=== PATIENT | male | born 1945 | race Caucasian/White ===

== ENCOUNTER 2020-02-17 08:51 | Outpatient (RCR) | payer MEDICARE, SELFPAY | END 2020-04-22 08:06 | disposition home or self-care (01) | LOC: HO.WCC 08:51 | PROVIDERS: PCP Internal Medicine; Visit Provider Physician Assistant Surgical | DX: Z09 Encounter for follow-up examination after completed treatment for conditions other than malignant neoplasm (principal); I87.302 Chronic venous hypertension (idiopathic) without complications of left lower extremity; E11.51 Type 2 diabetes mellitus with diabetic peripheral angiopathy without gangrene; I73.89 Other specified peripheral vascular diseases; Q81.8 Other epidermolysis bullosa; I82.592 Chronic embolism and thrombosis of other specified deep vein of left lower extremity; L29.9 Pruritus, unspecified; Z79.01 Long term (current) use of anticoagulants | CPT/HCPCS: 11042; 15271; 29581; 97597; 99212; Q4101 ==

== ENCOUNTER 2020-10-12 07:59 | Outpatient (RCR) | payer MEDICARE, SELFPAY | END 2020-12-16 15:02 | disposition home or self-care (01) | LOC: HO.WCC 07:59 | PROVIDERS: Visit Provider Physician Assistant | DX: E11.621 Type 2 diabetes mellitus with foot ulcer (principal); L97.512 Non-pressure chronic ulcer of other part of right foot with fat layer exposed; E11.69 Type 2 diabetes mellitus with other specified complication; M86.371 Chronic multifocal osteomyelitis, right ankle and foot; L03.031 Cellulitis of right toe; Z79.01 Long term (current) use of anticoagulants; Z79.2 Long term (current) use of antibiotics | CPT/HCPCS: 11042; 15275; 99212; 99213; Q4186 ==

== ENCOUNTER 2020-12-03 08:27 | Outpatient (REF) | payer MEDICARE, SELFPAY ==
--- NOTE | ~2020-12-03 | XR_ITS ---
EXAMINATION: ORBITS PRE-MRI CLINICAL INFORMATION: History of foreign body in the eyes. Pre-MRI screening. COMPARISON: None TECHNIQUE: 3 views of the orbits. FINDINGS: There is no radiopaque foreign body seen in the orbits visualized paranasal sinuses and mastoid air cells are well-aerated. No bony abnormality seen involving the maxillofacial or nasal bones. XR/XR pre mri screening IMPRESSION: No radiopaque foreign body seen in the orbits.
--- NOTE | ~2020-12-03 | MR_ITS ---
EXAMINATION: MRI FOOT WITHOUT AND WITH CONTRAST, RIGHT CLINICAL INFORMATION: Nonhealing wound. Evaluate for osteomyelitis 3rd distal toe COMPARISON: Radiographs 10/28/2019 TECHNIQUE: MRI without and with intravenous administration of 10 mL of Gadavist is performed on the right foot. FINDINGS: There is marrow edema and enhancement with loss of T1 fatty marrow signal of the 3rd distal phalanx with possible erosion of the tuft compatible with osteomyelitis. Surrounding cellulitis with no abscess. Diffuse subcutaneous edema along the dorsum of the foot. Hallux sesamoid osteoarthritis MR/MR foot RT wo/w con IMPRESSION: Imaging findings compatible with osteomyelitis of the 3rd distal phalanx. No abscess.
[2020-12-03 09:03] LABS: MANUAL DIFF FLAG NO
[2020-12-03 09:08] LABS: Basophils Absolute Auto 0.1 X10*3/uL (0.0-0.2); Basophils Percent Auto 0.7 % (0-2); Eosinophils Absolute Auto 0.2 X10*3/uL (0.0-0.4); Eosinophils Percent Auto 2.4 % (0-4); Hematocrit 43.4 % (42-52); Hemoglobin 14.4 g/dl (14.0-18.0); Imm Gran Abs Auto 0.06 X10*3/uL (0.00-0.03); Imm Gran Pct Auto 0.9 % (0.0-0.4); Lymphocytes Absolute Auto 1.2 X10*3/uL (1.2-4.9); Lymphocytes Percent Auto 17.8 % (20-40); Mean Corpuscular HGB Conc 33.2 g/dl (31.0-36.0); Mean Corpuscular Hemoglobin 32.4 pg (27.0-33.0); Mean Corpuscular Volume 97.7 fL (80-98); Mean Platelet Volume 11.1 fL (9.4-12.4); Monocytes Absolute Auto 0.7 X10*3/uL (0.1-1.2); Monocytes Percent Auto 10.1 % (2-11); Neutrophils Absolute Auto 4.6 X10*3/uL (2.0-8.3); Neutrophils Percent Auto 68.1 % (45-73); Platelet Count 183 X10*3/uL (160-400); Red Blood Count 4.44 X10*6/uL (4.60-5.80); Red Cell Distribution Width 12.9 % (11.0-16.0); White Blood Count 6.8 X10*3/uL (4.8-10.8)
[2020-12-03 09:40] LABS: Estimated Average Glucose 189 mg/dL; Hemoglobin A1c % 8.2 %
[2020-12-03 09:44] LABS: Anion Gap 11 (12-20); Blood Urea Nitrogen 23 mg/dL (9-16); C Reactive Protein 0.36 mg/dL (< or = 0.50); Calcium 9.4 mg/dL (8.4-10.2); Carbon Dioxide 25 mmol/L (22-29); Chloride 106 mmol/L (96-108); Estimated Glomerular Filt Rate > 60; Glucose Random 189 mg/dL (60-115); Potassium 4.1 mmol/L (3.3-5.1); Sodium 138 mmol/L (135-145)
[2020-12-03 09:55] LABS: Erythrocyte Sedimentation Rate 8 MM/HR (0-15)
== END 2020-12-03 08:28 | disposition home or self-care (01) ==
LOC: HO.MRI 08:27
PROVIDERS: PCP Internal Medicine; Visit Provider Physician Assistant
DX: E11.621 Type 2 diabetes mellitus with foot ulcer (principal); L97.519 Non-pressure chronic ulcer of other part of right foot with unspecified severity
CPT/HCPCS: 36415; 73720; 80048; 83036; 84134; 85025; 85652; 86140; A9585

== ENCOUNTER 2021-04-26 08:00 | Outpatient (RCR) | payer MEDICARE, SELFPAY | END 2021-06-15 15:10 | disposition home or self-care (01) | LOC: HO.WCC 08:00 | PROVIDERS: Visit Provider Physician Assistant | DX: E11.622 Type 2 diabetes mellitus with other skin ulcer (principal); I83.228 Varicose veins of left lower extremity with both ulcer of other part of lower extremity and inflammation; E11.51 Type 2 diabetes mellitus with diabetic peripheral angiopathy without gangrene; L97.822 Non-pressure chronic ulcer of other part of left lower leg with fat layer exposed; Z89.421 Acquired absence of other right toe(s); Z86.718 Personal history of other venous thrombosis and embolism; Z79.01 Long term (current) use of anticoagulants | CPT/HCPCS: 11042; 15271; 99212; Q4196 ==

== ENCOUNTER 2023-04-02 10:29 | Emergency (ER) | payer MEDICARE, SELFPAY ==
--- NOTE | ~2023-04-02 | XR_ITS ---
EXAMINATION: XR TIBIA AND FIBULA, LEFT CLINICAL INFORMATION: Wound at level of lower leg, concern for osteomyelitis, leg pain COMPARISON: None available. TECHNIQUE: AP and lateral views of the left tibia and fibula were obtained. FINDINGS: No fracture or dislocation is evident. There are no erosive or proliferative changes. Arterial calcifications are noted, as are degenerative changes of the ankle joint. There appears to be a skin ulceration at the level of the distal fibular shaft. XR/XR tibia fibula LT 2V IMPRESSION: 1. Skin ulceration in the lower leg, but No plain film evidence of osteomyelitis. However, if suspected clinically, MRI would be more sensitive means of evaluation of the distal tibia and fibula.
[2023-04-02 11:08] VITALS: BP 154/73; PULSE 68; RESP 20; TEMP 35.6; O2SAT 100; BMI 39.3
--- NOTE | 2023-04-02 11:10 | ED_ITS ---
HPI - General Adult General Chief complaint: Skin/Abscess/Foreign Body Stated complaint: wound check Time Seen by Provider: 04/02/23 12:14 Source: patient Mode of arrival: ambulatory Limitations: no limitations History of Present Illness HPI narrative: 78-year-old male with chronic wound, type II diabetes, and chronic DVT here for evaluation of his chronic wound. He reports a chronic wound on his left lateral ankle that has been present for about 2 years after sustaining a severe skin reaction to ertapenem. He has been managing the wound at home with gauze and silver sulfadiazine. His reports the wound has been oozing for the past few days. He denies pain. He denies fevers, chills, and malaise. He denies loss of sensation and paresthesias. No chest pain, palpitations, or shortness of breath. They have an appointment with wound care on 04/18. Related Data Allergies Allergy/AdvReac Type Severity Reaction Status Date / Time ertapenem [ERTAPENEM] Allergy Severe erythema Verified 04/02/23 11:11 multiforme with purpura and swelling, rash cefaclor [From CECLOR] Allergy Unknown HIVES Verified 04/02/23 11:11 Sulfa (Sulfonamide Allergy Unknown UNKNOWN Verified 04/02/23 11:11 Antibiotics) [SULFA (SULFONAMIDE ANTIBIOTICS)] daptomycin [DAPTOMYCIN] AdvReac Intermediate LEG PAIN Verified 04/02/23 11:11 ceclor-rash Allergy Unknown Unknown Uncoded 04/02/23 11:11 Sulfacet-R Allergy Unknown redness Uncoded 12/09/19 00:00 and itching PMFSH Social History Social History Advance Directives: No Advance Directives Information Provided: No Physical Exam ED Vital Signs: Vital Signs - 24 hr 04/02/23 11:08 Temperature 96.1 F L Pulse Rate 68 Respiratory Rate 20 Blood Pressure 154/73 H Pulse Oximetry 100 Oxygen Delivery Method Room Air BMI result Body Mass Index 39.3 Appearance: Alert.? Oriented X3.? No acute distress.? Head: Normocephalic, atraumatic, no step-offs or deformities Eyes: Pupils equal, round and reactive to light.? Neck: Normal inspection.? Neck supple.? CVS: Normal heart rate and rhythm.? Pulses normal.? Respiratory: No respiratory distress.? Breath sounds normal.? Abdomen: Soft and nontender.? Skin: Hemosiderin deposition on left lower leg. 3 cm x 3 cm ulceration on the left, lateral ankle without erythema or exudate. Skin on right warm and dry.? 2+ DP,AT,PT pulses on the right 1+ DP,AT,PT pulses on the left ( images of wound below) Extremities: + Pitting edema of the left lower leg with hemosiderin. No calf ttp. 5/5 strength to bilateral upper and lower extremities Neuro: Oriented X 3.? No motor deficit.? No sensory deficit. CN 2-12 intact Course Course Course Narrative: RME performed by Veronica Ferrari PA-C. Patient is a 78 year old assigned male at presenting to the emergency department with a non-healing chronic left lower leg wound. Patient states that he has had this wound for weeks and it recently began to pus. Patient states that he has an appointment with the wound center but that isn't until 04/18/2023. Labs and imaging ordered. Patient placed back in the waiting room pending room availability and results. Reevaluation(s) Reevaluation #1: Spoke to Anna Amaro from wound care states they have not seen him since May 2021 and has established venous insufficiency. States it is a I think he has cellulitis to go ahead and treat it otherwise would cut dura fiber with DCD in 2 because her [place] wrap. We do not have those types of wraps here in the department I explained to her, explained we have Kerlix and she says that that would suffice for the meantime. Will have him follow-up with Wound Care, her office will give him a call for an appointment as soon as possible I do not suspect cellulitis at this time. Educated patient on diagnosis and treatment plan, answered all question, patient verbalizes understanding. At this time patient will be discharged home, advised to return with new or worsening symptoms. Educated on worrisome signs and symptoms and when to return. At this time I feel comfortable discharge home. Time: 13:14 Medical Decision Making Medical Decision Making MDM Narrative: 78-year-old male with chronic leg wound, type 2 diabetes, and chronic DVT. He has been managing the wound at home with dry dressings and silver sulfadiazine. He denies fevers, chills, numbness, paresthesias of the left leg. No chest pain, palpitations, or shortness of breath. Physical exam revealed 3 x 3 ulcer on the left lateral ankle without signs of infection. Likely irritation of chronic wound secondary to adherence of dry dressing. Unlikely cellulitis, sepsis, arterial insufficiency, arterial occlusion, acute DVT, abscess, osteomyelitis, acute threat to limb Plan: X-Ray of left tibia and fibular, CMP, CBC, CRP Dress wound with xereform dressing and kerlix Follow-up with wound care Differential Diagnosis Differential Diagnoses: The differential diagnosis associated with the presentation includes Likely irritation of chronic wound secondary to adherence of dry dressing. 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 04/02/23 11:25 04/02/23 11:25 Labs: Lab Results 04/02/23 Range/Units 11:25 WBC 8.7 (4.8-10.8) X10*3/uL RBC 4.67 (4.60-5.80) X10*6/uL Hgb 14.7 (14.0-18.0) g/dl Hct 44.6 (42.0-52.0) % MCV 95.5 (80.0-98.0) fL MCH 31.5 (27.0-33.0) pg MCHC 33.0 (31.0-36.0) g/dl RDW 13.8 (11.0-16.0) % Plt Count 207 (160-400) X10*3/uL MPV 10.6 (9.4-12.4) fL Immature Gran % (Auto) 0.5 H (0.0-0.4) % Neut % (Auto) 77.6 H (45-73) % Lymph % (Auto) 9.8 L (20-40) % [place] % (Auto) 10.2 (2-11) % Eos % (Auto) 1.4 (0-4) % Baso % (Auto) 0.5 (0-2) % Lymph # (Auto) 0.9 L (1.2-4.9) X10*3/uL [place] # (Auto) 0.9 (0.1-1.2) X10*3/uL Eos # (Auto) 0.1 (0.0-0.4) X10*3/uL Baso # (Auto) 0.0 (0.0-0.2) X10*3/uL Abs Immat Gran (auto) 0.04 H (0.00-0.03) X10*3/uL Absolute Neuts (auto) 6.8 (2.0-8.3) x10*3/uL Absolute Nucleated RBC 0.000 (0.0-0.012) X10*3/uL Nucleated RBC % (auto) 0.0 (0.0-0.2) /100WBC ESR 12 (0-15) MM/HR Sodium 139 (135-145) mmol/L Potassium 4.8 (3.3-5.1) mmol/L Chloride 106 (96-108) mmol/L Carbon Dioxide 27 (22-29) mmol/L Anion Gap 11 L (12-20) BUN 22 H (9-16) mg/dL Creatinine 0.88 (0.5-1.4) mg/dL Estim Creat Clear Calc 94.3 Estimated GFR > 60 Random Glucose 183 H (60-115) mg/dL Lactic Acid 1.3 (0.5-2.0) mmol/L Calcium 9.1 (8.4-10.2) mg/dL Total Bilirubin 1.2 H (0.0-1.0) mg/dL AST 22 (5-37) U/L ALT 25 (0-40) U/L Alkaline Phosphatase 94 (39-117) U/L C-Reactive Protein 2.39 H (< or = 0.50) mg/dL Total Protein 6.9 (6.5-8.0) g/dL Albumin 4.1 (3.5-5.0) g/dL Independent Interpretation I performed an independent interpretation of an: Plain X-Ray (XR/XR tibia fibula LT 2V IMPRESSION: 1. Skin ulceration in the lower leg, but No plain film evidence of osteomyelitis. However, if suspected clinically, MRI would be more sensitive means of evaluation of the distal tibia and fibula.) Critical Care Time Critical Care Time Critical Care Time: Yes Total Critical Care Time: 35 Attestation: I attest to this time spent taking care of the patient, obtaining history, physical, reviewing labs, imaging, speaking to my attending, speaking to specialist. Discharge Plan Discharge Clinical Impression: Chronic wound Patient Disposition: Home, Self-Care Additional Instructions: Take your medications as prescribed. If you were prescribed antibiotics today, it is important that you take your medication to their entirety, do not skip any doses, do not finish them early. Follow-up with your primary care provider this week. Return to the emergency department with new or worsening symptoms. Such as fevers, chills, chest pain, shortness of breath, nausea, vomiting, dizziness, headache, vision changes, lethargy In case of emergency call 911 Referrals: [facility] [place] [facility] [place]Provider Group] - 2 days Sai Layton PA [Primary Care Provider] - 2 days Stand Alone Forms: Work/School Release
[2023-04-02 11:31] LABS: MANUAL DIFF FLAG NO
[2023-04-02 11:33] LABS: Basophils Percent Auto 0.5 % (0-2); Eosinophils Absolute Auto 0.1 X10*3/uL (0.0-0.4); Eosinophils Percent Auto 1.4 % (0-4); Hematocrit 44.6 % (42.0-52.0); Hemoglobin 14.7 g/dl (14.0-18.0); Imm Gran Abs Auto 0.04 X10*3/uL (0.00-0.03); Imm Gran Pct Auto 0.5 % (0.0-0.4); Lymphocytes Absolute Auto 0.9 X10*3/uL (1.2-4.9); Lymphocytes Percent Auto 9.8 % (20-40); Mean Corpuscular Hemoglobin 31.5 pg (27.0-33.0); Mean Corpuscular Volume 95.5 fL (80.0-98.0); Mean Platelet Volume 10.6 fL (9.4-12.4); Monocytes Absolute Auto 0.9 X10*3/uL (0.1-1.2); Monocytes Percent Auto 10.2 % (2-11); Neutrophils Absolute Auto 6.8 x10*3/uL (2.0-8.3); Neutrophils Percent Auto 77.6 % (45-73); Platelet Count 207 X10*3/uL (160-400); Red Blood Count 4.67 X10*6/uL (4.60-5.80); Red Cell Distribution Width 13.8 % (11.0-16.0); White Blood Count 8.7 X10*3/uL (4.8-10.8)
[2023-04-02 11:52] LABS: Lactic Acid 1.3 mmol/L (0.5-2.0)
[2023-04-02 11:56] LABS: Alanine Aminotransferase 25 U/L (0-40); Albumin Level 4.1 g/dL (3.5-5.0); Alkaline Phosphatase 94 U/L (39-117); Anion Gap 11 (12-20); Aspartate Amino Transferase 22 U/L (5-37); Bilirubin Total 1.2 mg/dL (0.0-1.0); Blood Urea Nitrogen 22 mg/dL (9-16); C Reactive Protein 2.39 mg/dL (< or = 0.50); Calcium 9.1 mg/dL (8.4-10.2); Carbon Dioxide 27 mmol/L (22-29); Chloride 106 mmol/L (96-108); Creatinine Clr Calc Pharmacy 94.3; Estimated Glomerular Filt Rate > 60; Glucose Random 183 mg/dL (60-115); Potassium 4.8 mmol/L (3.3-5.1); Sodium 139 mmol/L (135-145); Total Protein 6.9 g/dL (6.5-8.0)
[2023-04-02 12:11] LABS: Erythrocyte Sedimentation Rate 12 MM/HR (0-15)
== END 2023-04-02 13:37 | disposition home or self-care (01) ==
PROVIDERS: Physician Assistant Medical; Emergency Provider Student in an Organized Health Care Education/Training Program; PCP Physician Assistant Medical
DX: S91.002A Unspecified open wound, left ankle, initial encounter (principal); X58.XXXA Exposure to other specified factors, initial encounter; Z48.00 Encounter for change or removal of nonsurgical wound dressing; R60.0 Localized edema; E11.9 Type 2 diabetes mellitus without complications; Y93.9 Activity, unspecified; Y92.9 Unspecified place or not applicable; Y99.9 Unspecified external cause status; Z86.718 Personal history of other venous thrombosis and embolism
CPT/HCPCS: 36415; 73590; 80053; 83605; 85025; 85652; 86140; 87040; 99282; 99283

== ENCOUNTER 2023-04-12 07:57 | Outpatient (RCR) | payer MEDICARE, SELFPAY | END 2023-08-20 11:49 | disposition home or self-care (01) | LOC: HO.WCC 07:57 | PROVIDERS: PCP Physician Assistant Medical; Visit Provider Surgery | DX: E11.622 Type 2 diabetes mellitus with other skin ulcer (principal); L97.822 Non-pressure chronic ulcer of other part of left lower leg with fat layer exposed; L97.512 Non-pressure chronic ulcer of other part of right foot with fat layer exposed; I87.312 Chronic venous hypertension (idiopathic) with ulcer of left lower extremity; Z79.01 Long term (current) use of anticoagulants; Z79.84 Long term (current) use of oral hypoglycemic drugs; Z79.891 Long term (current) use of opiate analgesic; Z79.2 Long term (current) use of antibiotics; Z79.899 Other long term (current) drug therapy | CPT/HCPCS: 11042; 11045; 15271; 15275; 99212; 99213; Q4158 ==

== ENCOUNTER 2024-04-02 07:53 | Outpatient (RCR) | payer MEDICARE, SELFPAY | END 2024-05-06 12:43 | disposition home or self-care (01) | LOC: HO.WCC 07:53 | PROVIDERS: PCP Physician Assistant Medical; Visit Provider Surgery | DX: I87.312 Chronic venous hypertension (idiopathic) with ulcer of left lower extremity (principal); L97.822 Non-pressure chronic ulcer of other part of left lower leg with fat layer exposed; Z79.84 Long term (current) use of oral hypoglycemic drugs; Z79.01 Long term (current) use of anticoagulants; Z79.891 Long term (current) use of opiate analgesic; Z79.2 Long term (current) use of antibiotics; Z79.899 Other long term (current) drug therapy | CPT/HCPCS: 11042; 99212 ==

== ENCOUNTER 2025-04-23 08:00 | Outpatient (RCR) | payer MEDICARE, SELFPAY | END 2025-04-23 16:58 | disposition home or self-care (01) | LOC: HO.WCC 08:00 | PROVIDERS: PCP Physician Assistant Medical; Visit Provider Surgery Surgical Oncology | DX: E11.65 Type 2 diabetes mellitus with hyperglycemia (principal); I87.022 Postthrombotic syndrome with inflammation of left lower extremity; E11.51 Type 2 diabetes mellitus with diabetic peripheral angiopathy without gangrene; L84 Corns and callosities; I10 Essential (primary) hypertension; Z79.84 Long term (current) use of oral hypoglycemic drugs; Z89.421 Acquired absence of other right toe(s); Z86.718 Personal history of other venous thrombosis and embolism | CPT/HCPCS: 11042; 15271; 29581; 97597; 99213; Q4187 ==